=== PATIENT | female | born 1945 | race Caucasian/White ===

== ENCOUNTER → 2016-10-19 | Outpatient (CLI) | payer OTHER ==
[~2016-10-19] MED LIST: ACTOS PO; ASPIRIN PO; ATENOLOL PO; CALCIUM 500 + D1 TAB PO; FISH OIL 1,0001 CAP PO; GLYBURIDE PO; HUMULIN 70/30 V10 ML SUBQ; LIPITOR; LISINOPRIL PO; METFORMIN; METFORMIN PO; VICODIN 5/500 T1 TAB PO; ZOCOR PO
--- NOTE | ~2016-10-19 | MY11 ---
[facility] A Service of [facility] RADIOLOGY TEXT RESULTS PATIENT: YOMAIRA RIVAS LOCATION: [facility] : 45 UNIT #: [id number] AGE: [address]: Elizabeth Billy APRN SEX: F ORDER DR: [id number] [facility] [address] [place], [place] [address] [id number] O MR#: [id number] Acc #: [id number] NAME: YOMAIRA RIVAS : 1945 SEX: F STUDY DATE/TIME: 10/19/2016 14:05 UNIT: [facility] ROOM: STUDY DESCRIPTION: MY Mammogram Screening Dig Mane Attending Physician: Elizabeth Billy A.P.R.N. Ordering Physician: Elizabeth Billy A.P.R.N. Primary Care Physician: Elizabeth Billy A.P.R.N. MEDICAL IMAGING REPORT This report is preliminary unless electronic signature is present EXAM Bilateral Digital Screening Mammogram with CAD INDICATION Breast cancer screening. 71-year-old asymptomatic female. No personal or family history of breast cancer. COMPARISON September 19, 2015; July 19, 2014; July 09, 2013; June 08, 2012; May 23, 2012, May 14, 2011; May 01, 2010 and December 16, 2008. FINDINGS There are scattered fibroglandular tissues. No suspicious findings are present. IMPRESSION No mammographic evidence of malignancy. Annual screening mammography and clinical breast exam are recommended. A result letter will be sent to the patient. Patients over the age of 40 are entered into a reminder system with target due date for the next mammogram. BIRADS: 1 Negative Dictated by... Artur Swartz M.D. THIS IS AN ELECTRONICALLY VERIFIED REPORT Artur Swartz M.D. at 10/20/2016 7:26 AM [facility] A Service of [facility] RADIOLOGY TEXT RESULTS PATIENT: YOMAIRA RIVAS LOCATION: [facility] : 45 UNIT #: [id number] AGE: [address]: Elizabeth Billy APRN SEX: F ORDER DR: ESTHER/benoit TD: 10/20/2016 04:48 JOB #: [id number] MEDICAL IMAGING REPORT COPY
== END | disposition home or self-care (01) ==
LOC: CWCC 13:00
DX: Z12.31 Encounter for screening mammogram for malignant neoplasm of breast (principal)
CPT/HCPCS: G0202